=== PATIENT | female | born 1945 | race Caucasian/White ===

== ENCOUNTER 2017-07-03 19:43 | Emergency (ER) | payer MEDICARE, MEDICAID ==
[2017-07-03 20:00] VITALS: BP 149/80
[2017-07-03] MEDS ORDERED: Amoxicillin PO (*) 500 MG CAP PO ONE (20:18)
--- NOTE | 2017-07-03 20:18 | UC ---
Respiratory Complaint HPI - HPI Summary HPI Summary: Per sales and service representative "Constant cough for 3 days, left ear pain, sore throat; pt got vaccine 3 days ago in left arm." She has had sinus pain/pressure since them. she has had multiple surgeieries on b/l ears w/ [employer] hearing device on rt. never smoked. no asthma. no fevers. no wheezing. - History of Current Complaint Chief Complaint: UCRespiratory Stated Complaint: CHEST CONGESTION, LEFT EAR COMPLAINT, SORE THROAT Time Seen by Provider: 07/03/17 19:57 Pain Intensity: 0 - Allergies/Home Medications Allergies/Adverse Reactions: Allergies Allergy/AdvReac Type Severity Reaction Status Date / Time seasonal Allergy Sneezing Uncoded 07/03/17 20:00 Home Medications: Home Medications Amiodarone HCl 1 tab PO DAILY 07/03/17 [History Confirmed 07/03/17] Esomeprazole Magnesium [Nexium] 20 mg PO DAILY 07/03/17 [History Confirmed 07/03] Rivaroxaban TAB(*) [Xarelto 10 mg (*)] 10 mg PO DAILY 07/03/17 [History Confirmed 07/03/17] PMH/Surg Hx/FS Hx/Imm Hx Previously Healthy: Yes Cardiovascular History: Atrial Fibrillation - Surgical History Surgical History: Yes Surgery Procedure, Year, and Place: THR b/l. breast reduction. bunionectomy bilateral. ear surgery. hysterectomy - Family History Known Family History: Positive: Hypertension - Social History Alcohol Use: Rare Substance Use Type: None Smoking Status (MU): Never Smoked Tobacco Have You Smoked in the Last Year: No - Immunization History Hx Tetanus, Diphtheria Vaccination: Yes Vaccination Up to Date: Yes Review of Systems Constitutional: Fatigue Skin: Negative Eyes: Negative ENT: Ear Ache, Sinus Congestion, Sinus Pain/Tenderness Respiratory: Cough Cardiovascular: Negative Gastrointestinal: Negative Genitourinary: Negative Motor: Negative Neurovascular: Negative Musculoskeletal: Negative Neurological: Negative Psychological: Negative Is Patient Immunocompromised?: No All Other Systems Reviewed And Are Negative: Yes Physical Exam Triage Information Reviewed: Yes Appearance: Well-Appearing, No Pain Distress, Well-Nourished Vital Signs: Initial Vital Signs Temp 99.2 F 07/03/17 19:51 Pulse 85 07/03/17 19:51 Resp 20 07/03/17 19:51 BP 149/80 07/03/17 19:51 Pulse Ox 97 07/03/17 19:51 Vital Signs Reviewed: Yes Eye Exam: Normal ENT: Positive: Pharyngeal erythema, Nasal congestion, Sinus tenderness, Other - abnml anatomy of rt ear canal. left TM w/ tube Dental Exam: Normal Neck exam: Normal Neck: Positive: Supple, Nontender, No Lymphadenopathy Respiratory: Positive: Lungs clear, Normal breath sounds, No respiratory distress, No accessory muscle use, Respiratory distress Cardiovascular: Positive: Other: - irreg/irreg Abdomen Description: Positive: Nontender, Soft Musculoskeletal Exam: Normal Neurological Exam: Normal Psychological Exam: Normal Skin Exam: Normal UC Diagnostic Evaluation - Laboratory O2 Sat by Pulse Oximetry: 97 Respiratory Course/Dx - Course Course Of Treatment: treat w/ amox w/ sinusitis and complicated ENT hx w/ multiple ear surgeries anad abnml anatomy. -on xarelto, not problematic w/ abx - Differential Dx/Diagnosis Differential Diagnosis/HQI/PQRI: Asthma, Bronchitis, Sinusitis Provider Diagnoses: sinusitis Discharge - Sign-Out/Discharge Documenting (check all that apply): Post-Discharge Follow Up - Discharge Plan Condition: Stable Disposition: HOME Prescriptions: Amoxicillin PO (*) [Amoxicillin 875 MG (*)] 875 mg PO BID #20 tab Patient Education Materials: Sinusitis (ED) Referrals: Sofia Garcia MD [Primary Care Provider] - Additional Instructions: -Make sure to take probiotic daily while on antibiotics. You can eat activia yogurt or take brand names such as florastor, colon health or align. - Billing Disposition and Condition Condition: STABLE Disposition: HOME
== END 2017-07-03 20:27 | disposition home or self-care (01) ==
LOC: UCCORT 19:43
DX: J32.9 Chronic sinusitis, unspecified (principal)
CPT/HCPCS: 99212; A9270-GY; G0463